=== PATIENT | female | born 1975 ===

== ENCOUNTER 2017-07-19 08:18 | Day surgery (SDC) | payer OTHER ==
[2017-07-13 15:03] VITALS: BMI 34.7
[2017-07-19 08:52] LABS: HEMATOCRIT 38.7 % (34.0-47.0); MEAN CELL VOLUME 85.9 fl (81.0-99.0); MEAN CORPUSCULAR HGB CONC 32.6 g/dL (33.0-37.0); RED CELL DISTRIBUTION WIDTH 14.1 % (11.5-14.5); WHITE BLOOD COUNT 10.7 K/uL (4.8-10.8)
[2017-07-19 09:00] LABS: BLOOD UREA NITROGEN 13 mg/dl (7-17); CALCIUM 9.7 mg/dL (8.4-10.2); CARBON DIOXIDE 27 mmol/L (22-30); CHLORIDE 103 mmol/L (98-107); GFR AFRICAN-AMERICAN > 60; GLUCOSE,RANDOM 96 mg/dL (65-105); POTASSIUM 4.1 MMOL/L (3.6-5.0); SODIUM 144 mmol/l (132-148)
[2017-07-19] MEDS ORDERED: Lactated Ringer's 1,000 ML IV ONE (09:00)
[2017-07-19] MEDS ORDERED: Propofol 10 mg/ml Inj (20 ML) ONE (09:23)
[2017-07-19] MEDS ORDERED: ePHEDrine 50 mg/ml Inj ONE (09:23)
[2017-07-19] MEDS ORDERED: Succinylcholine 200 mg/10 ml Inj IV ONE (09:23)
[2017-07-19] MEDS ORDERED: Lidocaine 4% (Laryng-O-Jet) Kit MM ONE (09:23)
[2017-07-19] MEDS ORDERED: Midazolam 2 MG/2 ML VIAL ONE (09:23)
--- NOTE | 2017-07-19 10:10 | CP.PCM.HP ---
History of Present Illness - History of Present Illness History of Present Illness: 41 yo female with large cervical polyp and irregular bleeding and some pelvic discomfort. Pt consented for removal of polyp and hysteroscopy D&C. Discussed with patient the R/B/A of surgery and all patient questions answered. Present on Admission - Present on Admission Any Indicators Present on Admission: No History of DVT/PE: No History of Uncontrolled Diabetes: No Urinary Catheter: No Decubitus Ulcer Present: No Past Patient History - Past Medical History & Family History Past Medical History?: Yes - Past Social History Smoking Status: Never Smoked - CARDIAC Hx Cardiac Disorders: No - PULMONARY Hx Respiratory Disorders: No - NEUROLOGICAL Hx Neurological Disorder: No - HEENT Hx HEENT Problems: No - RENAL Hx Chronic Kidney Disease: No - HEMATOLOGICAL/ONCOLOGICAL Hx Blood Disorders: Yes Hx Hepatitis A: Yes ( CHILD) - INTEGUMENTARY Hx Dermatological Problems: No - MUSCULOSKELETAL/RHEUMATOLOGICAL Hx Musculoskeletal Disorders: No - GASTROINTESTINAL Hx Gastrointestinal Disorders: No Hx Gastritis: Yes - GENITOURINARY/GYNECOLOGICAL Hx Genitourinary Disorders: No - PSYCHIATRIC Hx Psychophysiologic Disorder: Yes Hx Anxiety: Yes Hx Substance Use: No - SURGICAL HISTORY Hx Surgeries: Yes Hx Section: Yes (X3) Other/Comment: RIGHT BREAST CYSTECTOMY - ANESTHESIA Hx Anesthesia: Yes Hx Anesthesia Reactions: No Hx Malignant Hyperthermia: No Has any member of the family had a problem w/ anesthesia?: No Meds Allergies/Adverse Reactions: Allergies Allergy/AdvReac Type Severity Reaction Status Date / Time Iodinated Contrast- Oral and Allergy SHORTNESS Verified 07/19/17 08:39 IV Dye OF BREATH Physical Exam - Constitutional Appears: Well, No Acute Distress - Head Exam Head Exam: ATRAUMATIC - Eye Exam Eye Exam: Normal appearance, PERRL - ENT Exam ENT Exam: Mucous Membranes Moist - Respiratory Exam Respiratory Exam: Clear to Auscultation Bilateral, NORMAL BREATHING PATTERN - Cardiovascular Exam Cardiovascular Exam: REGULAR RHYTHM - GI/Abdominal Exam GI & Abdominal Exam: Normal Bowel Sounds - Extremities Exam Extremities exam: Positive for: full ROM, normal inspection. Negative for: calf tenderness, pedal edema Results - Vital Signs Recent Vital Signs: Last Vital Signs Temp 98.3 F 07/19/17 09:15 Pulse 83 07/19/17 09:15 Resp 18 07/19/17 09:15 BP 115/63 07/19/17 09:15 Pulse Ox 98 07/19/17 09:15 - Labs Result Diagrams: 07/19/17 08:30 07/19/17 08:30 Labs: Laboratory Results - last 24 hr 07/19/17 07/19/17 08:30 08:30 WBC 10.7 RBC 4.51 Hgb 12.6 Hct 38.7 MCV 85.9 MCH 28.0 MCHC 32.6 L RDW 14.1 Plt Count 239 Sodium 144 Potassium 4.1 Chloride 103 Carbon Dioxide 27 Anion Gap 17 BUN 13 Creatinine 0.6 L Est GFR ( Amer) > 60 Est GFR (Non-Af Amer) > 60 Random Glucose 96 Calcium 9.7 - Imaging and Cardiology US - abdomen Status: Report reviewed by me Assessment & Plan - Assessment and Plan (Free Text) Assessment: Cervical polyp, irregular bleeding Plan: Hysteroscopy, D&C, cervical polypectomy routine postop observation and care. - Date & Time Date: 07/19/17 Time: 10:10
[2017-07-19] MEDS ORDERED: Dexamethasone 4 mg/1 ml ONE (10:24)
[2017-07-19] MEDS ORDERED: Silver Nitrate Topical - Stick ONE (10:26)
--- NOTE | 2017-07-19 10:37 | PCM.SURG1 ---
Surgeon's Initial Post Op Note - Surgeon's Notes Surgeon: Thomas Spot Washer: N/A Type of Anesthesia: General Endo Pre-Operative Diagnosis: Cervical polyp, irregular bleeding Operative Findings: Cervical polyp ~2-3cm, otherwise normal pelvic anatomy Post-Operative Diagnosis: Same Operation Performed: Hysteroscopy, D&C, Cervical polypectomy Specimen/Specimens Removed: 1. Cervical polyp 2. EMC Estimated Blood Loss: EBL {In ML}: 0 Blood Products Given: N/A Drains Used: No Drains Post-Op Condition: Good Date of Surgery/Procedure: 07/19/17 Time of Surgery/Procedure: 10:37
--- NOTE | 2017-07-19 10:39 | CP.PCM.DIS ---
Provider - Provider Date of Admission: 07/19/17 Attending physician: Gabriel Guzman MD Primary care physician: Bebo Tran MD Time Spent in preparation of Discharge (in minutes): 10 Diagnosis - Discharge Diagnosis (1) Cervical polyp Status: Chronic (2) Irregular bleeding Status: Chronic Hospital Course - Lab Results Lab Results: Most Recent Lab Values WBC 10.7 K/uL (4.8-10.8) 07/19/17 08:30 RBC 4.51 Mil/uL (3.80-5.20) 07/19/17 08:30 Hgb 12.6 g/dL (12.0-16.0) 07/19/17 08:30 Hct 38.7 % (34.0-47.0) 07/19/17 08:30 MCV 85.9 fl (81.0-99.0) 07/19/17 08:30 MCH 28.0 pg (27.0-31.0) 07/19/17 08:30 MCHC 32.6 g/dL (33.0-37.0) L 07/19/17 08:30 RDW 14.1 % (11.5-14.5) 07/19/17 08:30 Plt Count 239 K/uL (130-400) 07/19/17 08:30 Sodium 144 mmol/l (132-148) 07/19/17 08:30 Potassium 4.1 MMOL/L (3.6-5.0) 07/19/17 08:30 Chloride 103 mmol/L (98-107) 07/19/17 08:30 Carbon Dioxide 27 mmol/L (22-30) 07/19/17 08:30 Anion Gap 17 (10-20) 07/19/17 08:30 BUN 13 mg/dl (7-17) 07/19/17 08:30 Creatinine 0.6 mg/dL (0.7-1.2) L 07/19/17 08:30 Est GFR ( Amer) > 60 07/19/17 08:30 Est GFR (Non-Af Amer) > 60 07/19/17 08:30 Random Glucose 96 mg/dL (65-105) 07/19/17 08:30 Calcium 9.7 mg/dL (8.4-10.2) 07/19/17 08:30 - Hospital Course Hospital Course: Admit on 07/19/17 for hysteroscopy, D&C. Uncomplicated procedure. Normal postop course. Discharged same day Discharge Exam - Head Exam Head Exam: ATRAUMATIC Discharge Plan - Follow Up Plan Condition: GOOD Disposition: HOME/ ROUTINE Referrals: Bebo Tran MD [Primary Care Provider] -
[2017-07-19] MEDS ORDERED: Oxycodone/Acetaminophen 5/325 mg Tab PO PRN (10:40)
[2017-07-19] MEDS ORDERED: HYDROmorphone 0.5 mg/0.5 ml ISec IVP PRN (10:42)
[2017-07-19] MEDS ORDERED: Lactated Ringer's 1,000 ML IV SCH ×2 (10:45)
[2017-07-19 12:54] VITALS: O2SAT 99
[2017-07-19 13:16] VITALS: BP 112/73; PULSE 89; RESP 18; TEMP 99.1
--- NOTE | 2017-07-19 23:42 | OP ---
PROCEDURE DATE: 07/19/2017 PREOPERATIVE DIAGNOSES: Cervical polyp, irregular bleeding. POSTOPERATIVE DIAGNOSES: Cervical polyp, irregular bleeding. OPERATIONS PERFORMED: Hysteroscopy, D and C, cervical polypectomy. COMPLICATIONS: None. SURGEON: Dr. Gabriel Guzman. TYPE OF ANESTHESIA: General. ESTIMATED BLOOD LOSS: Minimal. FLUIDS: 250 mL lactated Ringer's. URINE OUTPUT: 50 mL of clear urine. COMPLICATIONS: None. DESCRIPTION OF PROCEDURE: The patient was taken to the operating room where general anesthesia was found to be adequate. The patient was prepped and draped in normal sterile fashion in the dorsal lithotomy position. A weighted speculum was placed at the posterior aspect of the vagina. A Rosenberg retractor was placed at the anterior surface of the vagina. The cervix was grasped at the anterior surface with a single tooth tenaculum. The cervix was dilated with Tariq dilators to a size of 20-Egyptian. The hysteroscope was placed through the cervix and into the uterine cavity. The endometrium appeared normal with no fibroids or polyps or abnormal growths. The cervix had an approximately 2-3 cm polyp. This polyp was removed under direct visualization with polyp forceps. After removal, surgical pedicle found to be hemostatic. The hysteroscope was removed from the patient. The tenaculum was removed from the cervix. All instruments were removed from the patient. The tenaculum site and cervical os was found to be hemostatic. The patient tolerated the procedure well. All sponge count, lap count and needle counts were correct x2. There were no complications. The patient was taken to the recovery room awake and in stable condition. Gabriel Guzman MD
== END 2017-07-19 13:50 | disposition home or self-care (01) ==
LOC: H.OPSURG 08:18
PROVIDERS: ATTEND Obstetrics & Gynecology
DX: N84.1 Polyp of cervix uteri (principal); N92.5 Other specified irregular menstruation
CPT/HCPCS: 36415; 58558; 80048; 85027; 88305; J0330; J1100; J2001; J2250; J2405; J2704; J3010; J7030; J7120